=== PATIENT | female | born 1975 | race African-American/Black ===

== ENCOUNTER 2016-11-27 10:33 | Emergency (ER) | payer MEDICARE, MEDICAID ==
[~2016-11-27 10:33] MED LIST: ALBUTEROL; COGENTIN; DEPAKOTE; OMEPRAZOLE; RISPERIDONE
== END 2016-11-27 11:15 | disposition left against medical advice (07) ==
LOC: ER 10:45
DX: Z53.21 Procedure and treatment not carried out due to patient leaving prior to being seen by health care provider (principal)

== ENCOUNTER 2016-11-27 12:20 | Emergency (ER) | payer MEDICARE, MEDICAID ==
[~2016-11-27] VITALS: Ht 170.2 cm; Wt 80.0 kg
[2016-11-27 12:48] VITALS: BP 141/87
== END 2016-11-27 19:30 | disposition left against medical advice (07) ==
LOC: ER 18:47
DX: Z53.21 Procedure and treatment not carried out due to patient leaving prior to being seen by health care provider (principal)